=== PATIENT | male | born 1960 | race Caucasian/White ===

== ENCOUNTER 2016-11-25 12:18 | Emergency (ER) | payer OTHER ==
--- NOTE | 2016-11-25 12:49 | CPEKG ---
Heart Rate: 54 RR Interval: 1111 P-R Interval: 188 QRSD Interval: 112 QT Interval: 452 QTC Interval: 429 P [place]: 49 QRS [place]: 46 T Wave [place]: 3 EKG Severity - ABNORMAL ECG - EKG Impression: SINUS RHYTHM EKG Impression: INCOMPLETE RIGHT BUNDLE BRANCH BLOCK EKG Impression: LEFT VENTRICULAR HYPERTROPHY Electronically Signed By: Annie Duque 25-Nov-2016 14:41:12
[2016-11-25 13:04] LABS: % IMMATURE GRANULYOCYTES 0.2 % (0.0-1.1); ABSOLUTE IMMATURE GRANULOCYTES 0.01 10^3/uL (0.00-0.10); ADD DIFF? NO; ADD MORPH? NO; ADD SCAN? NO; ATYPICAL LYMPHOCYTE FLAG 0 (0-99); FRAGMENT RBC FLAG 0 (0-99); HEMATOCRIT 39.3 % (40.0-51.0); HEMOGLOBIN 13.7 g/dL (13.7-17.5); LEFT SHIFT FLG 0 (0-99); LIPEMIA HEMOLYSIS FLAG 90 (0-99); MEAN CELL HEMOGLOBIN 30.6 pg (27.9-34.1); MEAN CELL HEMOGLOBIN CONCENTR. 34.9 g/dL (32.4-36.7); MEAN CELL VOLUME 87.9 fL (81.5-99.8); PLATELET CLUMPS FLAG 10 (0-99); PLATELET COUNT 199 10^3/uL (150-400); RED BLOOD CELL COUNT 4.47 10^6/uL (4.40-6.38); RED CELL DISTRIBUTION WIDTH 13.6 % (11.5-15.2)
[2016-11-25 13:22] LABS: ANION GAP 12 mEq/L (8-16); CALCIUM 8.5 mg/dL (8.5-10.4); CARBON DIOXIDE 23 mEq/l (22-31); CHLORIDE 94 mEq/L (97-110); CREATININE 0.7 mg/dL (0.7-1.3); GLOMERULAR FILTRATION RATE > 60; GLUCOSE 78 mg/dL (70-100); POTASSIUM 3.8 mEq/L (3.5-5.2); SODIUM 129 mEq/L (134-144)
--- NOTE | 2016-11-25 13:31 | EDPHY ---
H & P Stated Complaint: hypertension/ran 5 miles this am/drank coffee and a rockstar/ no cp - Personal History Current Tetanus/Diphtheria Vaccine: Yes - Medical/Surgical History Hx Asthma: Yes Hx Chronic Respiratory Disease: No Hx Diabetes: No Hx Cardiac Disease: No Hx Renal Disease: No Hx Cirrhosis: No Hx Alcoholism: No Hx HIV/AIDS: No Hx Splenectomy or Spleen Trauma: No Other PMH: HEAD INJURY 8 YRS AGO. THUMB SURGERY - Social History Smoking Status: Never smoked HPI/ROS: Chief complaint: Hypertension History of present illness: This is a 56-year-old male sent from his psychiatrist's office to the emergency department for evaluation of hypertension. Patient was at a routine visit to establish care with a new psychiatrist today. While taking his blood pressure it was noted to be in the 190s over 1teens and he was sent here. On my evaluation he states he feels well. He has no complaints. He denies headache, dizziness or lightheadedness, he denies chest pain, shortness of breath or cough, he denies changes in his bowel or bladder habits, denies pain or swelling in the extremities, he denies neurologic symptoms such as paresthesias, weakness or paralysis or bowel or bladder dysfunction. He does report he has been told in the past he has had high blood pressure but has not sought treatment for this. He used to be seen at [facility] but it has probably been 10 years since he was last seen. He does report this morning he was in his usual state of health performing his normal activities which included consumption of coffee and energy drinks and chewing tobacco. Review of systems: A 10 point review of systems was obtained and other than described above was negative. (Eliu Nation) - Physical Exam Exam: General Appearance: Alert, nontoxic. Eyes: Pupils equal and round no pallor or injection. ENT, Mouth: Mucous membranes moist. Respiratory: There are no retractions, lungs are clear to auscultation. Cardiovascular: Regular rate and rhythm. Gastrointestinal: Abdomen is soft and non tender, no masses, bowel sounds normal. Neurological: Alert and oriented x4. Cranial nerves 2-12 grossly intact. Strength and sensation intact and symmetrical. Skin: Warm and dry, no rashes. Musculoskeletal: Neck is supple non tender. Extremities are symmetrical, full range of motion. Psychiatric: Patient is oriented X 3, there is no agitation. (Eliu Nation) Constitutional: Initial Vital Signs Temperature (C) 36.5 C 11/25/16 12:23 Heart Rate 55 L 11/25/16 12:23 Respiratory Rate 18 11/25/16 12:23 Blood Pressure 192/114 H 11/25/16 12:23 O2 Sat (%) 98 11/25/16 12:23 O2 Delivery Mode Room Air Allergies/Adverse Reactions: No Known Allergies Allergy (Verified 11/25/16 12:22) Home Medications: Medication Instructions Recorded Neurontin 12/03/14 Paxil 12/03/14 Trileptal 12/03/14 Medical Decision Making - Diagnostics EKG Interpretation: 12 lead EKG is interpreted in Trace master View by emergency department physician. (Praveena Griffin) ED Course/Re-evaluation: Patient is discussed with my secondary supervising physician Dr. Praveena Griffin. Patient presents to the emergency department for hypertension. This was incidentally noted at a psychiatric visit. On my evaluation he states he feels fine with no complaints. He does report being told in the past he has high blood pressure but has never treated it. Baseline blood studies EKG obtained, LVH noted otherwise unremarkable. I have discussed at length with him the importance of close follow-up with a primary care doctor for re-evaluation and to discuss management of his high blood pressure. He has voiced understanding of the importance of following up. He will monitor his blood pressure at home in the meantime. I did consult with [facility]. They confirm patient has not been seen in a very long time. They are happy for him to re-establish care and he can call for an appointment. I gave him referrals to other PCPs as well. At this time as he is asymptomatic I do not believe starting him on blood pressure medicine through the emergency department is warranted. I have given patient strict return precautions. He has voiced understanding and agreement plan. (Eliu Nation) The patient was evaluated and managed by the physician recruitment and outreach assistant. I have reviewed this chart and I agree with the findings and plan of care as documented , as indicated by my signature. I am the secondary supervising physician. ( Praveena Griffin) Differential Diagnosis: Included but not limited to hypertension, hypertensive urgency, hypertensive emergency (Eliu Nation) - Data Points Laboratory Results: Laboratory Results 11/25/16 12:13 08/23/17 12:13 Departure - Departure Disposition: Home, Routine, Self-Care Clinical Impression: Hypertension Condition: Good Instructions: Hypertension (ED) Additional Instructions: Follow-up with your primary care doctor this week for continued evaluation and care without fail You can call [facility] today and make an appointment, they have a new doctor Dr. Pavel Navas Monitor your blood pressure multiple times daily and record this to bring to your primary care doctor Avoid stimulants including caffeine and energy drinks If he develops any symptoms such as headache, chest pain, trouble breathing, trouble urinating, swelling in the body or other signs or symptoms return to the emergency room Referrals: [facility] [Outside] - As per Instructions ELLIOTT AVITIA [Primary Care Provider] - As per Instructions Stephanie Castillo DO [Doctor of Osteopathy] - As per Instructions
[2016-11-25 13:34] LABS: TROPONIN I < 0.012 ng/mL (0.000-0.034)
[2016-11-25 14:12] VITALS: BP 161/116; PULSE 50; RESP 14; TEMP 98.2; O2SAT 96
== END 2016-11-25 14:49 | disposition home or self-care (01) ==
DX: I10 Essential (primary) hypertension (principal); J45.909 Unspecified asthma, uncomplicated